=== PATIENT | male | born 1960 | race Caucasian/White ===

== ENCOUNTER 2025-06-27 17:21 | Emergency (ER) | payer MEDICAID, SELFPAY ==
[2025-06-27 17:25] VITALS: BP 152/90; PULSE 90; RESP 16; TEMP 36.4; O2SAT 92; BMI 29.5
--- OUTSIDE RECORDS SUMMARY | 2025-06-27 17:32 | XMS_ITS | Encounter Summary ---
Author Organization [facility] Address [address] [place] [address] Care Team Providers Care Marketing Technologist Name Role Phone Unavailable Primary Care Provider Unavailabl e Encounter Details Date Type Department Care Team (Late st Contact Info) Description 06/23/2025 External Device Data [facility] ABSTRACTION Provider, Abstract NO ADDRESS ON FILE Social History Tobacco Use Types Packs/Day Years Used Date Smoking Tobacco: Unknown Feeling Safe Answer Date Recorded Are you in a relationship wi th someone who hurts you emotionally and/or physically? No 05/26/2025 Sex and Gender Information Value Date Recorded Sex Assigned at Not on file Legal Sex Male 9:13 AM CDT Gender Identity Not on file Sexual Orientation Not on file documented as of this encounter Plan of Treatment Upcoming Encounters Date Type Department Care Team (Late st Contact Info) Description 01/12/2026 10:00 AM CDT Office Visit [facility] Neurology - [place] [address] [place] [address] Esmer Azevedo MD [address] [place] [address] documented as of this encounter Visit Diagnoses Not on filedocumented in this encounter
--- OUTSIDE RECORDS SUMMARY | 2025-06-27 17:32 | XMS_ITS | Encounter Summary ---
Author Organization [facility] Address [address] [place] [address] Care Team Providers Care Major Gifts Director Name Role Phone Unavailable Primary Care Provider [...] Description 01/12/2026 10:00 AM CDT Office Visit [facility] Neurology - [place] [address] [place] [address] Esmer Azevedo MD [address] [place] [address] documented as of this encounter Visit Diagnoses Not on filedocumented in this encounter
--- OUTSIDE RECORDS SUMMARY | 2025-06-27 17:32 | XMS_ITS | Clinical Summary ---
Author Organization [facility] Address [address] [place] [address] Phone Care Team Providers Care Brusher Name Role Phone Unavailable Primary Care Provider Unavailabl e Allergies No known active allergies Medications gabapentin (NEURONTIN) 300 mg capsule Take 1 Capsule (300 mg) by mouth 3 times daily. 90 Capsule 05/26/2025 06/25/20 25 thiamine (VITAMIN B-1) 100 mg tablet Take 1 Tablet (100 mg) by mouth daily for 7 days. 7 Tablet 05/26/2025 06/02/20 25 cyanocobalamin 1,000 mcg Tablet Take 1 Tablet (1,000 mcg) by mouth daily for 7 days. 7 Tablet 05/26/2025 06/02/20 25 Encounters Date Type Department Care Team Description 06/23/2025 External Device Data ST[facility] ABSTRACTION Provider, Abstract 06/23/2025 External Device Data [facility] ABSTRACTION Provider, Abstract 06/23/2025 External Device Data [facility] ABSTRACTION Provider, Abstract 06/02/2025 External Device Data [facility] ABSTRACTION Provider, Abstract 06/02/2025 External Device Data [facility] ABSTRACTION Provider, Abstract 06/01/2025 Abstract [facility] [address] [place] [id number] Provider, Abstract 06/01/2025 Orders Only [facility] [address] [place] [phone] Provider, Abstract 05/27/2025 External Device Data STL ABSTRACTION Provider, Abstract 05/26/2025 10:50 AM CDT - 05/26/2025 2:16 PM CDT Emergency [facility] Emergency Department [address] [place] [phone] Kadeem Torre, DO Neuropathy (Primary Dx) Discharge Disposition: Home or Self Care 05/26/2025 Travel from Last 3 Months Social History Tobacco Use Types Packs/Day Years Used Date Smoking Tobacco: Unknown Tobacco Cessation:Counseling Given: Not Answered Feeling Safe Answer Date Recorded Are you in a relationship wi th someone who hurts you emotionally and/or physically? No 05/26/2025 Sex and Gender Information Value Date Recorded Sex Assigned at Not on file Legal Sex Male 9:13 AM CDT Gender Identity Not on file Sexual Orientation Not on file Last Filed Vital Signs Vital Sign Reading Time Taken Comments Blood Pressure 129/71 05/26/2025 1:00 PM CDT Pulse 63 05/26/2025 1:00 PM CDT Temperature 36.6 C (97.8 F) 05/26/2025 9:27 AM CDT Respiratory Rate 19 05/26/2025 11:00 AM CDT Oxygen Saturation 95% 05/26/2025 1:00 PM CDT Inhaled Oxygen Concentration - - Weight 99.8 kg (220 lb) 05/26/2025 9:27 AM CDT Height 188 cm (6' 2 ) 05/26/2025 9:27 AM CDT Body Mass Index 28.25 05/26/2025 9:27 AM CDT Plan of Treatment Upcoming Encounters Date Type Department Care Team (Late st Contact Info) Description 01/12/2026 10:00 AM CDT Office Visit [facility] Neurology [facility] [address] [place] [address] Esmer Azevedo MD [address] [place] [phone] Health Maintenance Due Date Last Done Comments Pre-Diabetes and Diabetes Screening 1960 DTAP/TDAP/TD VACCINES (1 - Tdap) 1981 COLORECTAL SCREENING 2007 Colorectal Cancer Screening 2007 FIT-DNA Q 3 years 2007 FIT/FOBT Q 1 year 2007 Flex Sig/CT Colonography Q 5 years 2007 ZOSTER VACCINE (1 of 2) 02/25/2012 INFLUENZA VACCINE (#1) 2025 05/07/2023, 2021 RSV VACCINE (60+ or ) (1 - 1-dose 75+ series) 2037 Procedures Procedure Name Priority Date/Time Associated Diagnosis Comments CT CERVICAL SPINE WO CONTRAST Stat 05/26/2025 12:[address] HEAD WO CONTRAST Stat 05/26/2025 1 2:27 PM CDT MAGNESIUM LEVEL Stat 05/26/2025 11:41 AM CDT COMPREHENSIVE METABOLIC PANEL Stat 05/26/2025 11:41 AM CDT CBC WITH DIFFERENTIAL Stat 05/26/2025 11:41 AM CDT COMPREHENSIVE METABOLIC PANEL Routine 05/25/2025 11:56 AM CDT from Last 3 Months Results * CT CERVICAL SPINE WO CONTRAST (05/26/2025 12:27 PM CDT) Anatomical Region Laterality Modality Spine Computed Tomogra phy 05/26/2025 12:2 7 PM CDT Impressions 05/26/2025 12:36 PM CDT IMPRESSION: Please see below. Noncontrast axial images were obtained through the cervical spine. Sagittal reformations were also performed. Reason For Exam: numbness. Diagnosis: See Reason for Exam. Comparison: None Findings: No acute fracture. Straightening of the cervical lordosis. Minimal disc space height loss and endplate degenerative changes. The paraspinal soft tissues are unremarkable. The visualized lung apices are normal. IMPRESSION: 1. No significant central canal or foraminal narrowing. Narrative Procedure Note Huber Patel MD - 05/26/2025 IMPRESSION: Please see below. Noncontrast axial images were obtained through the cervical spine. Sagittal reformations were also performed. Reason For Exam: numbness. Diagnosis: See Reason for Exam. Comparison: None Findings: No acute fracture. Straightening of the cervical lordosis. Minimal disc space height loss and endplate degenerative changes. The paraspinal soft tissues are unremarkable. The visualized lung apices are normal. IMPRESSION: 1. No significant central canal or foraminal narrowing. [facility] DO CT ORDERABLES Final Result * CT HEAD WO CONTRAST (05/26/2025 12:27 PM CDT) Anatomical Region Laterality Modality Head Computed Tomogra phy 05/26/2025 12:2 7 PM CDT Impressions 05/26/2025 12:34 PM CDT IMPRESSION: Please see below. Exam: CT HEAD WO CONTRAST Date/Time of Exam: 05/26/2025 12:27 PM Reason For Exam: nubmness. Diagnosis: See Reason for Exam. Technique: CT of the head was performed without the administration of intravenous contrast. Comparison: None Findings: Mild atrophy. No hydrocephalus. No evidence of an acute infarct, mass or hemorrhage. Intact calvarium. No fluid in the middle ear cavities, mastoid air cells or visualized sinuses. IMPRESSION: 1. No significant abnormality. Narrative Procedure Note Huber Patel MD - 05/26/2025 IMPRESSION: Please see below. Exam: CT HEAD WO CONTRAST Date/Time of Exam: 05/26/2025 12:27 PM Reason For Exam: nubmness. Diagnosis: See Reason for Exam. Technique: CT of the head was performed without the administration of intravenous contrast. Comparison: None Findings: Mild atrophy. No hydrocephalus. No evidence of an acute infarct, mass or hemorrhage. Intact calvarium. No fluid in the middle ear cavities, mastoid air cells or visualized sinuses. IMPRESSION: 1. No significant abnormality. [facility] DO CT ORDERABLES Final Result * (ABNORMAL) CBC WITH DIFFERENTIAL (05/26/2025 11:41 AM CDT) [facility] WBC 4.3(L) 4.8 - 10.8 K/uL 05/26/2025 11:[address] [facility] RBC 4.29(L) 4.60 - 6.20 M/uL 05/26/2025 11:57 AM [facility] [employer] [facility] HEMOGLOBIN 13.1(L) 14.0 - 18.0 g/dL 05/26/2025 11:57 AM [facility] [employer] [facility] HEMATOCRIT 40.3(L) 41.0 - 53.0 % 05/26/2025 11:57 AM [facility] [employer] [facility] MCV 93.9 84.0 - 103.0 fL 05/26/2025 11:57 AM [facility] [employer] [facility] MCH 30.5 27.0 - 34.0 pg 05/26/2025 11:57 AM [facility] [employer] [facility] MCHC 32.5 30.0 - 35.0 g/dL 05/26/2025 11:57 AM [facility] [employer] [facility] PLATELETS 177 140 - 440 K/uL 05/26/2025 11:57 AM [facility] [employer] [facility] MPV 10.3 8.9 - 12.8 fL 05/26/2025 11:57 AM [facility] [employer] [facility] RDW 15.2(H) 11.0 - 14.5 % 05/26/2025 11:57 AM [facility] [employer] [facility] RDW-STDEV 52.0 37.0 - 54.0 fL 05/26/2025 11:57 AM [facility] [employer] [facility] NEUTROPHILS 52 42 - 75 % 05/26/2025 11:57 AM [facility] [employer] [facility] LYMPHOCYTES 36 24 - 44 % 05/26/2025 11:57 AM [facility] [employer] [facility] MONOCYTES 8 2 - 10 % 05/26/2025 11:57 AM [facility] [employer] [facility] EOSINOPHILS 3 0 - 7 % 05/26/2025 11:57 AM [facility] [employer] [facility] BASOPHILS 1 0 - 1 % 05/26/2025 11:57 AM [facility] [employer] [facility] IMMATURE GRANULOCYTES 0 0 - 2 % 05/26/2025 11:57 AM [facility] [employer] [facility] NEUTROPHIL ABSOLUTE 2.22 2.00 - 8.00 K/uL 05/26/2025 11:57 AM CDT [facility] LYMPHOCYTE ABSOLUTE 1.54 1.20 - 4.00 K/uL 05/26/2025 11:57 AM CDT [facility] MONOCYTE ABSOLUTE 0.35 0.10 - 0.60 K/uL 05/26/2025 11:57 AM CDT [facility] EOSINOPHIL ABSOLUTE 0.13 0.00 - 0.70 K/uL 05/26/2025 11:57 AM CDT [facility] BASOPHILS ABSOLUTE 0.02 0.00 - 0.20 K/uL 05/26/2025 11:57 AM CDT [facility] IMMATURE GRANULOCYTES ABSOLUTE 0.01 0.00 - 0.10 K/uL 05/26/2025 11:57 AM CDT [facility] SMEAR REVIEWED: NA - Not Applicable 05/26/2025 11:57 AM CDT [facility] Blood Venipuncture / Unknown 05/26/2025 11:41 AM CDT 05/26/2025 11:46 AM CDT us Kadeem Terrance Antony Maco DO HEMATOLOGY OR DERABLES Final Result [facility] CLIA # [id number] [id number] [place] [id number] * MAGNESIUM LEVEL (05/26/2025 11:41 AM CDT) Pathologist [facility] MAGNESIUM 2.0 1.6 - 2.4 mg/dL 05/26/2025 12:21 PM CDT [facility] Blood Venipuncture / Unknown 05/26/2025 11:41 AM CDT 05/26/2025 11:46 AM CDT us Kadeem Maco DO CHEMISTRY ORD ERABLES Final Result [facility] CLIA # [id number] [address] [place] [address] * (ABNORMAL) COMPREHENSIVE METABOLIC PANEL (05/26/2025 11:41 AM CDT) Only the most recent of2 resultswithin the time period is included. SODIUM 139 136 - 145 mmol/L 05/26/2025 12:21 PM [facility] POTASSIUM 5.4(H) 3.5 - 5.1 mmol/L 05/26/2025 12:21 PM [facility] Comment:Moderate hemolysis p resent. Can cause significant falsely elevated result. Redraw if indicated. CHLORIDE 100 98 - 107 mmol/L 05/26/2025 12:21 PM [facility] CO2 30(H) 22 - 29 mmol/L 05/26/2025 12:21 PM [facility] CALCIUM 8.9 8.8 - 10.2 mg/dL 05/26/2025 12:21 PM [facility] BUN 10 8 - 23 mg/dL 05/26/2025 12:21 PM [facility] CREATININE 1.19(H) 0.67 - 1.17 mg/dL 05/26/2025 12:21 PM [facility] GLUCOSE 101(H) 74 - 99 mg/dL 05/26/2025 12:21 PM [facility] TOTAL PROTEIN 6.7 6.4 - 8.3 g/dL 05/26/2025 12:21 PM [facility] ALBUMIN 3.6 3.5 - 5.2 g/dL 05/26/2025 12:21 PM [facility] BILIRUBIN TOTAL 0.3 0.0 - 1.0 mg/dL 05/26/2025 12:21 PM [facility] ALKALINE PHOSPHATASE 98 40 - 129 U/L 05/26/2025 12:21 PM [facility] AST 27 10 - 50 U/L 05/26/2025 12:21 PM [facility] Comment:Hemolysis present. R esult may be falsely elevated. ALT 16 <=50 U/L 05/26/2025 12:[address] [facility] Comment:Hemolysis present. R esult may be falsely elevated. GFR >60 >=60 mL/min/1. 73 sq meter 05/26/2025 12:21 PM CDT [facility] Comment:eGFR calculated with 2020 CKD-EPI equation. Vegetarian diet, extremely high or low muscle mass, and may affect results. Cystatin C with Glomerular Filtration Rate is a suitable alternative for these patients. ANION GAP 9 9 - 20 mmol/L 05/26/2025 12:21 PM CDT [facility] Blood Venipuncture / Unknown 05/26/2025 11:41 AM CDT 05/26/2025 11:46 AM CDT us Kadeem Hope DO CHEMISTRY ORD ERABLES Final Result [facility] CLIA # [id number] [address] [address] [place], [place] [id number] from Last 3 Months Insurance MEDICAID [place]
--- OUTSIDE RECORDS SUMMARY | 2025-06-27 17:32 | XMS_ITS | Encounter Summary ---
Author Organization [facility] Address [address] [place] [address] Care Team Providers Care Foreman Or Supervisor And Operator Name Role Phone Unavailable Primary Care Provider [...] Description 01/12/2026 10:00 AM CDT Office Visit [facility] Neurology - [place] [address] [place] [address] Esmer Azevedo MD [address] [place] [address] documented as of this encounter Visit Diagnoses Not on filedocumented in this encounter
--- OUTSIDE RECORDS SUMMARY | 2025-06-27 17:32 | XMS_ITS | Patient Health Record ---
Author Organization [employer], [facility] Address [address] [place] [address] Care Team Providers Care Sky Line Yarder Name Role Phone Darell Basurto Primary Care Provider Unavailabl e Reason For Referral No Information Plan Of Treatment No Information Insurance Providers Payer Name Payer Address Payer Phone Subscriber Number Group Number Insured Name Patient Relationship to Insured Coverage Start Date Coverage End Date [place] [address] [place] [id number] Ganga Donald Self - patient is the insured
--- NOTE | 2025-06-27 17:33 | ECG_ITS ---
[employer] Test Date: 2025-06-27 Pat Name: Ganga Donald Department: Room: Gender: Male Butt Sawyer: : 1960 Requested By: Giovanna Momin Order Number: [id number] Kowalski MD: Milton Westbrook M.D. Measurements Intervals [place] Rate: 91 P: 71 MA: 165 QRS: 58 QRSD: 95 T: 57 QT: 337 QTc: 415 Interpretive Statements SINUS RHYTHM No previous ECG available for comparison Electronically Signed On 06-27-2025 17:46:36 ORGAN TUNER by Milton Westbrook M.D. [id number]
--- NOTE | 2025-06-27 17:33 | ECG_ITS ---
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 Measurements Intervals [place] Rate: 91 P: 71 CA: 165 QRS: 58 QRSD: 95 T: 57 QT: 337 QTc: 415 Interpretive Statements SINUS RHYTHM NORMAL ECG No previous ECG available for comparison Electronically Signed On 06-28-2025 12:08:54 EXECUTIVE SEARCH CONSULTANT by Milton Westbrook M.D. [id number]
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
[2025-06-27 17:44] VITALS: PULSE 91; O2SAT 92
[2025-06-27 17:48] LABS: Hematocrit 38.0 % (37-53); Hemoglobin 12.20 g/dL (11.27-16.99); Mean Corpuscular HGB Conc 32.1 g/dL (30-55); Mean Corpuscular Hemoglobin 30.9 pg (27-33); Mean Corpuscular Volume 96.2 fl (82-101); Nucleated Red Blood Cells % 0 %; Platelet Count 221 10^3/cmm (157-399); Red Blood Count 3.95 10^6/uL (3.85-5.65); White Blood Count 7.59 10^3/uL (3.29-11.43)
[2025-06-27 18:03] LABS: Alcohol Level < 10 mg/dL (0-10)
[2025-06-27 18:05] VITALS: PULSE 87; O2SAT 93
[2025-06-27 18:08] LABS: Ammonia 32 umol/L (16-60)
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
--- NOTE | 2025-06-27 18:18 | PC.NURSE ---
Pt ripped out IV, then laughed out loud stating why'd I do that? Oh well. Pt IV catheter was intact upon removal. Pressure dressing and coban applied.
[2025-06-27 18:19] LABS: Glucose Urine UA Negative (Normal); Nitrate Urine Negative (Negative); Specific Gravity, Urine 1.021 (1.005-1.030)
[2025-06-27 18:29] LABS: PCP Screen Urine Negative (Negative)
[2025-06-27 18:36] LABS: Lactic Sepsis W/Reflex 2.5 mmol/L (0.5-2.2)
[2025-06-27 18:55] LABS: Add Urine Microscopic? YES
[2025-06-27 18:59] VITALS: BP 122/78; PULSE 89; O2SAT 94
[2025-06-27 20:00] LABS: Reflex Lactate Order REFLEX LACTIC ORDERD
== END 2025-06-27 19:00 | disposition home or self-care (01) ==
PROVIDERS: Emergency Provider Physician Assistant; PCP Family Medicine
DX: S27.321A Contusion of lung, unilateral, initial encounter (principal); S01.111A Laceration without foreign body of right eyelid and periocular area, initial encounter; V89.2XXA Person injured in unspecified motor-vehicle accident, traffic, initial encounter
CPT/HCPCS: 36416; 70450; 71045; 72125; 80306; 80307; 81001; 82140; 82962; 83605; 85025; 87086; 93005; 99285